=== PATIENT | male | born 1960 | race Caucasian/White ===

== ENCOUNTER 2017-01-08 22:29 | Emergency (ER) | payer OTHER ==
[2017-01-08] MEDS ORDERED: IBUPROFEN 600 MG TABLET (FP) PO ONE (22:30)
[2017-01-08 22:37] VITALS: BP 124/82; PULSE 76; TEMP 98.2; BMI 40.7
--- NOTE | 2017-01-08 22:47 | PDOC ---
History of Present Illness - General Chief Complaint: Injury Stated Complaint: LEFT KNEE INJURY AT WORK ONE WEEK AGO Time Seen by Provider: 01/08/17 22:30 History Source: Patient Exam Limitations: No Limitations - History of Present Illness Initial Comments: 01/08/17 22:45 56-year-old male with no medical history presents with left knee pain for one week. The patient states that as he was getting off and struck, he landed and twisted his knee one week ago. Patient reports that he has some knee discomfort when ambulating. Denies street trauma to the knee. Denies numbness or weakness. Has noted that he's been having increasing left knee swelling. Past History - Past Medical History Allergies/Adverse Reactions: Allergies Allergy/AdvReac Type Severity Reaction Status Date / Time No Known Allergies Allergy Verified 01/08/17 22:30 Home Medications: Ambulatory Orders NK [No Known Home Medication] 07/26/14 Other medical history: DENIES - Psycho/Social/Smoking Cessation Hx Anxiety: No Suicidal Ideation: No Smoking History: Never smoked Have you smoked in the past 12 months: No Information on smoking cessation initiated: No Hx Alcohol Use: Yes (SOCIAL) Drug/Substance Use Hx: No Substance Use Type: None Review of Systems - Review of Systems Able to Perform ROS?: Yes Comments:: 01/08/17 22:46 GENERAL/CONSTITUTIONAL: No fever, weakness. HEAD, EYES, EARS, NOSE AND THROAT: No change in vision. No ear pain or discharge. No sore throat. CARDIOVASCULAR: No chest pain or shortness of breath. RESPIRATORY: No cough, wheezing, or hemoptysis. GASTROINTESTINAL: No abdominal pain, nausea, vomiting, diarrhea, or decreased PO intolerance. GENITOURINARY: No dysuria, frequency, or change in urination. MUSCULOSKELETAL: No joint or muscle swelling or pain. No neck or back pain. + Left knee pain and swelling SKIN: No rash NEUROLOGIC: No headache, vertigo, loss of consciousness, or change in strength/ sensation. ENDOCRINE: No increased thirst. No abnormal weight change. HEMATOLOGIC/LYMPHATIC: No anemia, easy bleeding, or history of blood clots. ALLERGIC/IMMUNOLOGIC: No hives or skin allergy. *Physical Exam - Vital Signs Last Vital Signs Temp Pulse Resp BP Pulse Ox 98.2 F 76 16 124/82 98 01/08/17 22:33 01/08/17 22:33 01/08/17 22:33 01/08/17 22:33 01/08/17 22:33 - Physical Exam Comments: 01/08/17 22:45 GENERAL: Awake, alert, and fully oriented, in no acute distress. HEAD: No signs of trauma EYES: PERRLA, EOMI, sclera anicteric, conjunctiva clear ENT: Auricles normal inspection, hearing grossly normal, nares patent, oropharynx clear without exudates. NECK: Normal ROM, supple, no lymphadenopathy, JVD, or masses LUNGS: Breath sounds equal, clear to auscultation bilaterally. No wheezes, and no crackles HEART: Regular rate and rhythm, normal S1 and S2, no murmurs, rubs or gallops ABDOMEN: Soft, nontender, normoactive bowel sounds. No guarding, no rebound. No masses EXTREMITIES: Normal range of motion, no edema. No clubbing or cyanosis. No cords, erythema, or tenderness LUE: Left knee increased swelling compared to the right. Negative anterior drawer and posterior drawer test. Negative varus and valgus. TTP along the lateral meniscus. Sensation intact throughout. NEUROLOGICAL: Cranial nerves II through XII grossly intact. Normal speech, normal gait SKIN: Warm, Dry, normal turgor, no rashes or lesions noted. ED Treatment Course - RADIOLOGY Radiology Studies Ordered: Category Date Time Status KNEE 3 POS-LEFT [RAD] Stat Radiology 01/08/17 22:30 Ordered - Medications Given in the ED: ED Medications Discontinued Medications Generic Name Dose Route Start Last Admin Trade Name Freq PRN Reason Stop Dose Admin Ibuprofen 600 mg 01/08/17 22:30 01/08/17 22:37 Motrin - PO 01/08/17 22:31 600 mg ONCE ONE Administration Medical Decision Making - Medical Decision Making 01/08/17 22:47 Vital Signs Temp Pulse Resp BP Pulse Ox 98.2 F 76 16 124/82 98 01/08/17 22:33 01/08/17 22:33 01/08/17 22:33 01/08/17 22:33 01/08/17 22:33 56-year-old male presents with left knee pain. We'll obtain a left knee x-ray. I suspect the patient may potentially have a meniscal injury. If x-rays negative , we'll provide Christopher wrap, RICE therapy and have patient follow up with orthopedist for further definitive care. 01/08/17 22:56 Knee xray reviewed by me, pending official radiology read. No acute fractures. Mild arthritic changes. CHRISTOPHER wrap applied. I advised the patient that he will need ortho follow up. Weight bearing as tolerated. Pt states that he will follow up with the orthopedists here. I discussed the physical exam findings, ancillary test results and final diagnoses with the patient. I answered all of the patient's questions. The patient was satisfied with the care received and felt comfortable with the discharge plan and treatment plan. The patient will call their primary care physician within 24 hours to arrange follow-up and will return to the Emergency Department with any new, persistant or worsening symptoms. *DC/Admit/Observation/Transfer Diagnosis at time of Disposition: Knee pain, left Qualifiers: Chronicity: acute Qualified Code(s): M25.562 - Pain in left knee - Discharge Dispostion Disposition: HOME Condition at time of disposition: Stable Admit: No - Referrals Referrals: Pernell Hills MD [Staff Physician] - - Patient Instructions Printed Discharge Instructions: DI for Knee Pain Additional Instructions: Take 600 mg ibuprofen every 6 hours as needed for pain. Elevate the leg as much as you can to decrease the swelling. Weight bearing as tolerated. Ice as needed. Wear the CHRISTOPHER wrap for comfort. It is very important that you follow up with orthopedics. You are referred from the ER to ortho. Please call to schedule an appointment.
== END 2017-01-08 23:08 | disposition home or self-care (01) ==
LOC: FER 22:29
DX: M25.562 Pain in left knee (principal); X58.XXXA Exposure to other specified factors, initial encounter; Y93.89 Activity, other specified; Y92.89 Other specified places as the place of occurrence of the external cause
CPT/HCPCS: 73562-TC-LT; 99281-25